=== PATIENT | male | born 1990 | race Two or more races ===

== ENCOUNTER → 2025-02-21 08:51 | Outpatient (BNVA) | payer OTHER, SELFPAY | PROVIDERS: Visit Provider Registered Nurse | DX: S30.1XXA Contusion of abdominal wall, initial encounter (principal); S16.1XXA Strain of muscle, fascia and tendon at neck level, initial encounter; S70.01XA Contusion of right hip, initial encounter; V89.0XXA Person injured in unspecified motor-vehicle accident, nontraffic, initial encounter | CPT/HCPCS: 99203 ==

== ENCOUNTER 2025-02-25 19:29 | Emergency (ER) | payer SELFPAY ==
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
[2025-02-25 19:47] VITALS: BP 128/65; PULSE 97; RESP 18; TEMP 36.8; O2SAT 97; BMI 32.9
[2025-02-25 20:42] LABS: MANUAL DIFF FLAG NO
[2025-02-25 20:43] LABS: Hematocrit 38.5 % (42.0-52.0); Hemoglobin 13.6 g/dl (14.0-18.0); Imm Gran Abs Auto 0.07 X10*3/uL (0.00-0.03); Imm Gran Pct Auto 0.8 % (0.0-0.4); Lymphocytes Absolute Auto 1.6 X10*3/uL (1.2-4.9); Mean Corpuscular HGB Conc 35.3 g/dl (31.0-36.0); Mean Corpuscular Hemoglobin 29.4 pg (27.0-33.0); Mean Corpuscular Volume 83.3 fL (80.0-98.0); NRBC Abs Auto 0.000 X10*3/uL (0.0-0.012); NRBC Pct Auto 0.0 /100WBC (0.0-0.2); Platelet Count 286 X10*3/uL (160-400); Red Blood Count 4.62 X10*6/uL (4.60-5.80); White Blood Count 8.8 X10*3/uL (4.8-10.8)
[2025-02-25 20:55] LABS: Alanine Aminotransferase 92 U/L (0-40); Albumin Level 4.5 g/dL (3.5-5.0); Alkaline Phosphatase 64 U/L (39-117); Anion Gap 18 (12-20); Aspartate Amino Transferase 59 U/L (5-37); Blood Urea Nitrogen 21 mg/dL (9-16); Calcium 9.1 mg/dL (8.4-10.2); Carbon Dioxide 25 mmol/L (22-29); Chloride 101 mmol/L (96-108); Creatinine Clr Calc Pharmacy 127.0; Estimated Glomerular Filt Rate > 60; Potassium 3.9 mmol/L (3.3-5.1); Sodium 140 mmol/L (135-145); Total Protein 7.1 g/dL (6.5-8.0)
[2025-02-26] MEDS: iohexoL 350 MG/ML 100 ML INFUS..BTL 85 ML IV (01:11)
--- OUTSIDE RECORDS SUMMARY | 2025-02-26 01:15 | XMS_ITS | Patient Health Record ---
[facility] Organization [facility] Address [address] [place] [address] Care Team Providers Care Composition Roofer Name Role Phone Tania VOSS, Kike Primary Care Provider Rehana Lou Unavailable [phone] Allergies No Known Allergies Reason For Referral No Information Social History Tobacco Use: Social History Observation Description Date Details (start date - stop date) Former Smoker NA - NA Tobacco Use/Smoking Question Answer Notes Are you a: former smoker Additional Findings: Tobacco Non-User Current no n-smoker Alcohol Screen Question Answer Notes Did you have a drink contain ing alcohol in the past year? Yes How often did you have a dri nk containing alcohol in the past year? Monthly or less (1 point) How many drinks did you have on a typical day when you were drinking in the past year? 1 or 2 drinks (0 point) How often did you have 6 or more drinks on one occasion in the past year? Never (0 point) Points 1 Interpretation Negative Tobacco use other than smoking: Question Answer Notes Are you an other tobacco user? No Plan Of Treatment No Information Insurance Providers Payer Name Payer Address Payer Phone Subscriber Number Group Number Insured Name Patient Relationship to Insured Coverage Start Date Coverage End Date Blue Benefits [address] [address] [place] [address] [id number] Jim Rodríguez Self - patient is the insured Medical (General) History Medical History History ICD Code Chicken pox Surgical History Surgery Date(Month/Year)
[2025-02-26 02:33] VITALS: BP 113/87; PULSE 67; RESP 16; TEMP 36.7; O2SAT 98
--- NOTE | 2025-02-26 02:34 | PC.NURSE ---
removed Iv , reviewed discharge instruction with pt, pt verbalized understanding, no sign of distress, no guarding on abd, pt ambulated with a steady gait upon discharge.
[2025-02-26 02:35] VITALS: BP 113/87; PULSE 67; RESP 16; TEMP 36.7; O2SAT 98
== END 2025-02-26 02:35 | disposition home or self-care (01) ==
PROVIDERS: Nurse Practitioner Family; Emergency Provider Emergency Medicine; PCP Internal Medicine
DX: T14.8XXA Other injury of unspecified body region, initial encounter (principal); V43.62XA Car passenger injured in collision with other type car in traffic accident, initial encounter; Y93.9 Activity, unspecified; Y92.9 Unspecified place or not applicable; Y99.9 Unspecified external cause status; R10.9 Unspecified abdominal pain
CPT/HCPCS: 36415; 74177; 80048; 80076; 85025; 99283; 99284; Q9967

== ENCOUNTER → 2025-02-26 00:27 | Outpatient (BNV) | payer OTHER, SELFPAY | PROVIDERS: Emergency Provider Emergency Medicine; PCP Internal Medicine; Visit Provider Radiology Diagnostic Radiology | DX: R18.8 Other ascites (principal); N32.89 Other specified disorders of bladder | CPT/HCPCS: 74177 ==

== ENCOUNTER → 2025-02-28 09:12 | Outpatient (BNVA) | payer OTHER, SELFPAY | PROVIDERS: PCP Internal Medicine; Visit Provider Registered Nurse | DX: S30.1XXA Contusion of abdominal wall, initial encounter (principal); S16.1XXA Strain of muscle, fascia and tendon at neck level, initial encounter; S70.01XA Contusion of right hip, initial encounter; V89.0XXA Person injured in unspecified motor-vehicle accident, nontraffic, initial encounter | CPT/HCPCS: 99213 ==

== ENCOUNTER → 2025-03-21 12:55 | Outpatient (BNVA) | payer OTHER, SELFPAY | PROVIDERS: PCP Internal Medicine; Visit Provider Emergency Medicine | DX: S30.1XXD Contusion of abdominal wall, subsequent encounter (principal); S16.1XXD Strain of muscle, fascia and tendon at neck level, subsequent encounter; S80.02XD Contusion of left knee, subsequent encounter; V89.0XXD Person injured in unspecified motor-vehicle accident, nontraffic, subsequent encounter | CPT/HCPCS: 99214 ==

== ENCOUNTER → 2025-04-05 13:19 | Outpatient (BNVA) | payer OTHER, SELFPAY | PROVIDERS: PCP Internal Medicine; Visit Provider Emergency Medicine | DX: S30.1XXD Contusion of abdominal wall, subsequent encounter (principal); S40.012D Contusion of left shoulder, subsequent encounter; S80.02XD Contusion of left knee, subsequent encounter; V89.0XXD Person injured in unspecified motor-vehicle accident, nontraffic, subsequent encounter; Z02.79 Encounter for issue of other medical certificate | CPT/HCPCS: 99213 ==

== ENCOUNTER 2025-04-21 14:02 | Outpatient (RCR) | payer OTHER, BC, SELFPAY ==
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
--- NOTE | 2025-04-28 10:32 | MHC.PT.DC ---
[facility] [place] Office [place] Office [place] Office [address] [phone] F: [phone] F: [phone] F: [phone] F: [phone] Physical Therapy Discharge Report Diagnosis: neck pain, arm pain L Date of Surgery: Date of Evaluation: 03/06/25 Date of Discharge: 04/28/25 Treatments to Date: 12 Cancellations to Date: 0 No Shows to Date: 0 Discharge Status: Achieved Goals Improved Function Independent with HEP Discharge Summary: Jim has made good progress in PT and demonstrates improved strength, ROM, and function. He will still have intermittent 'tightness' of anterior neck at times, however not constant and improved. AT this time, he is appropriate for d/c to I HEP. Electronically signed by: Sena Puckett PT Please sign and return to therapist. Thank you for your referral.
== END 2025-04-28 10:33 | disposition home or self-care (01) ==
LOC: HO.PT 14:02
PROVIDERS: PCP Internal Medicine; Visit Provider Registered Nurse
DX: S16.1XXD Strain of muscle, fascia and tendon at neck level, subsequent encounter (principal); M79.602 Pain in left arm
CPT/HCPCS: 97110; 97140; 97161; 97530

== ENCOUNTER → 2025-05-17 09:31 | Outpatient (BNVA) | payer OTHER, SELFPAY | PROVIDERS: PCP Internal Medicine; Visit Provider Emergency Medicine | DX: S30.11XD Contusion of abdominal wall, subsequent encounter (principal); S30.0XXD Contusion of lower back and pelvis, subsequent encounter; S80.02XD Contusion of left knee, subsequent encounter; V89.0XXD Person injured in unspecified motor-vehicle accident, nontraffic, subsequent encounter; Z02.79 Encounter for issue of other medical certificate | CPT/HCPCS: 99214 ==